=== PATIENT | female | born 1995 | race Native Hawaiian/Other Pacific Islander ===

== ENCOUNTER 2020-11-01 10:49 | Emergency (ER) | payer OTHER ==
[~2020-11-01] VITALS: Ht 165.1 cm; Wt 72.6 kg
[2020-11-01 10:59] VITALS: TEMP 97.6
[2020-11-01 11:31] LABS: PLATELET COUNT 223 K/uL (152-353)
[2020-11-01 12:23] VITALS: BP 133/51
== END 2020-11-01 12:24 | disposition home or self-care (01) ==
LOC: ED 10:49
PROVIDERS: Hospitalist
DX: N39.0 Urinary tract infection, site not specified (principal)
CPT/HCPCS: 80048; 81000; 81025; 85027; 87086; 87088; 99283; J0696; J1885